=== PATIENT | female | born 1950 | race Caucasian/White ===

== ENCOUNTER → 2017-05-10 | Outpatient (CLI) | payer BC ==
--- NOTE | 2017-05-11 11:10 | MM ---
Reason for exam: screening (asymptomatic). Last mammogram was performed 2 years and 1 month ago. History: Patient is postmenopausal. Took estrogen beginning at age 45. Physical Findings: A clinical breast exam by your physician is recommended on an annual basis and results should be correlated with mammographic findings. MG Screening Mammo w CAD Bilateral CC and MLO view(s) were taken. Prior study comparison: April 08, 2015, bilateral MG screening mammo w CAD. August 16, 2011, bilateral digital screening mammo w/CAD. There are scattered fibroglandular densities. There is chronic nodularity in the left breast. No significant changes when compared with prior studies. ASSESSMENT: Benign, BI-RAD 2 RECOMMENDATION: Routine screening mammogram of both breasts in 1 year.
== END | disposition home or self-care (01) ==
LOC: RADMAMWWP 15:17
PROVIDERS: ATTEND Family Medicine
DX: Z12.31 Encounter for screening mammogram for malignant neoplasm of breast (principal)

== ENCOUNTER → 2018-01-03 | Outpatient (CLI) | payer MEDICARE ==
--- NOTE | 2018-01-04 12:38 | EST ---
EXERCISE STRESS AGE: 67 SEX: F HT: 5'5" WT: 195 PROTOCOL: Elver Stress Test STAGE: II DURATION OF EXERCISE: 4:51 HEART RATE REST: 73 BLOOD PRESSURE REST: 136/93 MAXIMUM HEART RATE ACHIEVED: 149 MAXIMUM BLOOD PRESSURE: 195/69 85% MPHR: 132 100% MPHR: 155 METS: 6.8 INDICATIONS: Chest pain. CLINICAL INFORMATION: Referred by Dr. Anson Byrnes for chest pain evaluation. Baseline heart rate 73 beats per minute. Baseline blood pressure 136/93 mmHg. Baseline 12-lead ECG shows normal sinus rhythm, normal cardiac intervals. Patient exercised on Elver protocol for 4 minutes 51 seconds achieving a peak heart rate of 149 beats per minute. Normal blood pressure in response to exercise. There was no ECG evidence for ischemia. No arrhythmias were noted. IMPRESSION: 1. Low-average exercise capacity. 2. No ECG evidence for ischemia at this low workload level. MMODL / IJN: [id number] /
== END | disposition home or self-care (01) ==
LOC: RADNMMAIN 11:08
PROVIDERS: ATTEND Family Medicine
DX: R68.89 Other general symptoms and signs (principal)
CPT/HCPCS: 93017

== ENCOUNTER → 2018-10-09 | Outpatient (CLI) | payer MEDICARE ==
--- NOTE | 2018-10-11 12:50 | MM ---
Reason for exam: screening (asymptomatic). Last mammogram was performed 1 year and 5 months ago. History: Patient is postmenopausal. Took estrogen beginning at age 45. Physical Findings: A clinical breast exam by your physician is recommended on an annual basis and results should be correlated with mammographic findings. MG 3D Screening Mammo W/Cad Bilateral CC and MLO view(s) were taken. Prior study comparison: May 10, 2017, bilateral MG screening mammo w CAD. April 08, 2015, bilateral MG screening mammo w CAD. There are scattered fibroglandular densities. Finding: There is a typically benign equal density (isodense), obscured oval mass in the middle position of the right breast on CC view which may be associated with vessels, 3D ML view recommended. New finding since May 10, 2017 and April 08, 2015. ASSESSMENT: Incomplete: need additional imaging evaluation, BI-RAD 0 RECOMMENDATION: Special view mammogram of the right breast. If lesion persists on supplemental views, image directed ultrasound is recommended. [facility] will attempt to contact patient to return for supplemental views and ultrasound if indicated.
== END | disposition home or self-care (01) ==
LOC: RADMAMWWP 13:19
PROVIDERS: ATTEND Family Medicine
DX: Z12.31 Encounter for screening mammogram for malignant neoplasm of breast (principal)
CPT/HCPCS: 77063; 77067

== ENCOUNTER → 2018-10-17 | Outpatient (CLI) | payer MEDICARE ==
--- NOTE | 2018-10-17 15:00 | MM ---
Reason for exam: additional evaluation requested from abnormal screening. Last mammogram was performed less than 1 month ago. History: Patient is postmenopausal. Took estrogen beginning at age 45. Physical Findings: Nurse did not find any significant physical abnormalities on exam. MG 3D Work Up W/Cad RT CC and MLO view(s) were taken of the right breast. Prior study comparison: October 09, 2018, bilateral MG 3d screening mammo w/cad. May 10, 2017, bilateral MG screening mammo w CAD. There are scattered fibroglandular densities. There is no discrete abnormality. No significant new findings when compared with previous films. These results were verbally communicated with the patient and result sheet given to the patient on 10/17/18. ASSESSMENT: Negative, BI-RAD 1 RECOMMENDATION: Return to routine screening mammogram schedule for both breasts.
== END | disposition home or self-care (01) ==
LOC: RADMAMWWP 14:17
PROVIDERS: ATTEND Family Medicine
DX: R92.8 Other abnormal and inconclusive findings on diagnostic imaging of breast (principal)
CPT/HCPCS: 77065; G0279; 77061

== ENCOUNTER → 2018-10-31 | Outpatient (CLI) | payer MEDICARE ==
--- NOTE | 2018-10-31 15:12 | BD ---
EXAMINATION TYPE: Axial Bone Density DATE OF EXAM: 10/31/2018 COMPARISON: 11/01/2005 CLINICAL HISTORY: Height: 64 IN Weight: 196 LBS RISK FACTORS HISTORY OF: Active: YES Diet low in dairy products/other sources of calcium: YES Postmenopausal woman: AGE 50 Take estrogen and/or progesterone medications: NOT NOW How long: CONTROL FROM AGE 20-48 MEDICATIONS: Additional Medications: VIT D, MULTI VIT, GABAPENTIN, EXAM MEASUREMENTS: Bone mineral densitometry was performed using the LifeShield System. Bone mineral density as measured about the Lumbar spine is: ----- L1-L4(G/cm2): 1.128 T Score Values are as follows: ----- L2: -1.3 ----- L3: -1.0 ----- L4: 1.4 ----- L1-L4: 0.5 Bone mineral density has: Increased 17.7% since study of: 11/01/2005 Bone mineral density about the R hip (g/cm2): 0.784 Bone mineral density about the L hip (g/cm2): 0.717 T Score values are as follows: -----R Neck: -1.8 -----L Neck: -1.2 -----R Total: -1.6 -----L Total: -1.2 Bone mineral density has: Increased 1.3% since study of: 11/01/2005 IMPRESSION: Osteopenia (T Score between -2.5 and -1). There is slightly increased risk of fracture and the patient may be considered for treatment. Re-Screen 2-5 years. NOTE: T-SCORE=SD OF THE YOUNG ADULT MEAN.
== END | disposition home or self-care (01) ==
LOC: RADBDWWP 12:31
PROVIDERS: ATTEND Family Medicine
DX: M85.80 Other specified disorders of bone density and structure, unspecified site (principal)
CPT/HCPCS: 77080

== ENCOUNTER 2019-02-21 06:53 | Day surgery (SDC) | payer MEDICARE ==
[2019-02-16 12:36] VITALS: BMI 32.4
[~2019-02-21 06:53] MED LIST: LACTATED RINGERS 1,000 ML IV SCH; LIDOCAINE 1% 20 ML VIAL (10MG/ML) FOR IV START INTRADERMA PRN; MIDAZOLAM 2 MG/2 ML VIAL IV PRN
[2019-02-21] MEDS ORDERED: LACTATED RINGERS 1,000 ML IV ONE (07:05)
[2019-02-21 07:13] VITALS: TEMP 97.6
[2019-02-21] MEDS ORDERED: PROPOFOL 10 MG/ML 20 ML VIAL IV ONE (07:28)
--- NOTE | 2019-02-21 07:30 | P.GSHP ---
History of Present Illness H&P Date: 02/21/19 CHIEF COMPLAINT: Colon screen HISTORY OF PRESENT ILLNESS: The patient is a 68-year-old female who presents for colon screen. Lower endoscopy was offered for further evaluation and management. PAST MEDICAL HISTORY: Please see list. PAST SURGICAL HISTORY: Please see list. MEDICATIONS: Please see list. ALLERGIES: Please see list. SOCIAL HISTORY: No illicit drug use FAMILY HISTORY: No reports of Crohn disease or ulcerative colitis. REVIEW OF ORGAN SYSTEMS: CONSTITUTIONAL: No reports of fevers or chills. PHYSICAL EXAM: VITAL SIGNS: Stable GENERAL: Well-developed pleasant in no acute distress. HEENT: No scleral icterus. Extraocular movements grossly intact. Moist buccal mucosa. NECK: Supple without lymphadenopathy. CHEST: Unlabored respirations. Equal bilateral excursions. CARDIOVASCULAR: Regular rate and rhythm. Distal 2+ pulses. ABDOMEN: Soft, nontender, nondistended. MUSCULOSKELETAL: No clubbing, cyanosis, or edema. ASSESSMENT: 1. Colon screen. PLAN: 1. Recommend proceeding with a lower endoscopy Past Medical History Past Medical History: Eye Disorder, Fibromyalgia, Osteoarthritis (OA) Additional Past Medical History / Comment(s): HX OF COLON POLYP, MAGUI MAC DEGENERATION History of Any Multi-Drug Resistant Organisms: None Reported Past Surgical History: Orthopedic Surgery, Tubal Ligation Additional Past Surgical History / Comment(s): LEFT KNEE SCOPE, COLONOSCOPY Past Anesthesia/Blood Transfusion Reactions: Motion Sickness Smoking Status: Former smoker - Past Family History Mother Family Medical History: No Reported History Medications and Allergies Home Medications Medication Instructions Recorded Confirmed Type Melatonin 5 mg PO HS 04/22/15 02/21/19 History Multivitamins, Thera [Multivitamin] 1 tab PO DAILY 04/22/15 02/16/19 History Acetaminophen/Diphenhydramine 1 each PO HS 02/16/19 02/21/19 History [Tylenol PM Extra Strength] Aspirin [Adult Low Dose Aspirin EC] 81 mg PO DAILY 02/16/19 02/16/19 History Cranberry Fruit Extract [Cranberry] 500 mg PO DAILY 02/16/19 02/16/19 History Ibuprofen 200 mg PO Q6H PRN 02/16/19 02/16/19 History Magnesium 200 mg PO DAILY 02/16/19 02/16/19 History [place]-3 Fatty Acids/Fish Oil [Fish 1 each PO DAILY 02/16/19 02/16/19 History Oil 1,000 mg Softgel] Vit A/Vit C/Vit E/Zinc/Copper 1 cap PO DAILY 02/16/19 02/16/19 History [ICAPS SOFTGEL] Allergies Allergy/AdvReac Type Severity Reaction Status Date / Time nickel Allergy Rash/Hives Verified 02/21/19 07:14 Surgical - Exam Vital Signs Pulse Resp BP Pulse Ox 78 14 153/79 94 L 02/21/19 07:10 02/21/19 07:10 02/21/19 07:10 02/21/19 07:10
--- NOTE | 2019-02-21 08:04 | P.PCN ---
Date of Procedure: 02/21/19 Description of Procedure: PREOPERATIVE DIAGNOSIS: Colonoscopy screening Personal history of colon polyps Family history colon cancer POSTOPERATIVE DIAGNOSIS: Colonoscopy screening Personal history of colon polyps Family history colon cancer Multiple tubular adenomas throughout the colon. External hemorrhoids, grade 3. OPERATION: Colonoscopy to the ileocecal valve and appendiceal orifice. Colonoscopy with multiple cold forceps biopsies. SURGEON: Marcelina Rivera MD. ANESTHESIA: MAC. INDICATIONS: The patient is a 68-year-old female who presents for colonoscopy screening. Last colonoscopy 5 years ago. Benefits and risks were described and informed consent was obtained. DESCRIPTION OF PROCEDURE: The patient had undergone GoLytely prep. She had been brought into the operating room and laid in the left lateral decubitus position. After adequate intravenous sedation, the rectum was examined with 2% lidocaine jelly. External hemorrhoids were encountered. The rectal tone was within normal limits. No lesions were palpated in the rectal vault. An Olympus colonoscope was advanced until the ileocecal valve and appendiceal orifice were clearly viewed. The prep was fair with visualization of the mucosal folds. The scope was removed with visualization of each mucosal fold. No large scattered diverticulosis was encountered. Multiple colonic polyps were found and cold forcep biopsy. No evidence of focal colitis was found. Retroflexion of the scope demonstrated grade 2 internal hemorrhoids without active bleeding or inflammation. The colon was desufflated. The patient had tolerated the procedure well. Withdrawal time was over 6 minutes. FINDINGS: Aronchick preparation quality scale 2 (1-5) Internal hemorrhoids, grade 2 External hemorrhoids, grade 3 No arteriovenous malformations No large scattered diverticulosis Removal of 4 polyps: - Cold forceps biopsy 20 cm from the anal verge x 2, 4 and 5 mm tubulovillous adenoma polyp. - Cold forceps biopsy 18 cm from the anal verge, 5 mm flat villous adenoma polyp. - Cold forceps biopsy at hepatic flexure, 5 mm polyp. No focal colitis. RECOMMENDATIONS: Given severity of tubular adenomas, recommend repeat colonoscopy 3 years, 2021. Plan - Discharge Summary Discharge Rx Participant: No New Discharge Prescriptions: No Action Multivitamins, Thera [Multivitamin] 1 tab PO DAILY Melatonin 5 mg PO HS Vit A/Vit C/Vit E/Zinc/Copper [ICAPS SOFTGEL] 1 cap PO DAILY [place]-3 Fatty Acids/Fish Oil [Fish Oil 1,000 mg Softgel] 1 each PO DAILY Magnesium 200 mg PO DAILY Ibuprofen 200 mg PO Q6H PRN PRN Reason: Pain Cranberry Fruit Extract [Cranberry] 500 mg PO DAILY Aspirin [Adult Low Dose Aspirin EC] 81 mg PO DAILY Acetaminophen/Diphenhydramine [Tylenol PM Extra Strength] 1 each PO HS Discharge Medication List Melatonin 5 mg PO HS 04/22/15 [History] Multivitamins, Thera [Multivitamin] 1 tab PO DAILY 04/22/15 [History] Acetaminophen/Diphenhydramine [Tylenol PM Extra Strength] 1 each PO HS 02/16/19 [History] Aspirin [Adult Low Dose Aspirin EC] 81 mg PO DAILY 02/16/19 [History] Cranberry Fruit Extract [Cranberry] 500 mg PO DAILY 02/16/19 [History] Ibuprofen 200 mg PO Q6H PRN 02/16/19 [History] Magnesium 200 mg PO DAILY 02/16/19 [History] Edison-3 Fatty Acids/Fish Oil [Fish Oil 1,000 mg Softgel] 1 each PO DAILY 02/16/19 [History] Vit A/Vit C/Vit E/Zinc/Copper [ICAPS SOFTGEL] 1 cap PO DAILY 02/16/19 [History] Follow up Appointment(s)/Referral(s): Marcelina Rivera MD [STAFF PHYSICIAN] - As Needed Patient Instructions/Handouts: Colorectal Polyps (IP) Activity/Diet/Wound Care/Special Instructions: Follow-up in 3 years, 2021 Discharge Disposition: HOME SELF-CARE
[2019-02-21 08:15] VITALS: BP 121/82; PULSE 64; RESP 16
== END 2019-02-21 08:37 | disposition home or self-care (01) ==
LOC: ORWHC2ENDO 06:53
PROVIDERS: ATTEND Surgery Plastic and Reconstructive Surgery
DX: Z12.11 Encounter for screening for malignant neoplasm of colon (principal); D12.3 Benign neoplasm of transverse colon; K63.5 Polyp of colon; K64.4 Residual hemorrhoidal skin tags; M19.90 Unspecified osteoarthritis, unspecified site; M79.7 Fibromyalgia; Z79.82 Long term (current) use of aspirin; Z80.0 Family history of malignant neoplasm of digestive organs; Z86.010 Personal history of colon polyps; Z87.891 Personal history of nicotine dependence; Z98.51 Tubal ligation status; Z79.1 Long term (current) use of non-steroidal anti-inflammatories (NSAID); Z79.899 Other long term (current) drug therapy; Z91.048 Other nonmedicinal substance allergy status
CPT/HCPCS: 88305; 45380; J2704

== ENCOUNTER → 2021-05-19 | Outpatient (CLI) | payer MEDICARE ==
--- NOTE | 2021-05-25 12:13 | MM ---
Reason for exam: screening (asymptomatic). Last mammogram was performed 2 years and 7 months ago. History: Patient is postmenopausal. Took estrogen beginning at age 45. Physical Findings: A clinical breast exam by your physician is recommended on an annual basis and results should be correlated with mammographic findings. MG 3D Screening Mammo W/Cad Bilateral CC and MLO view(s) were taken. Prior study comparison: October 17, 2018, right breast MG 3d work up w/cad RT. October 09, 2018, bilateral MG 3d screening mammo w/cad. There are scattered fibroglandular densities. No significant changes when compared with prior studies. ASSESSMENT: Negative, BI-RAD 1 RECOMMENDATION: Routine screening mammogram of both breasts in 1 year.
== END | disposition home or self-care (01) ==
LOC: RADMAMWWP 13:04
PROVIDERS: ATTEND Family Medicine
DX: Z12.31 Encounter for screening mammogram for malignant neoplasm of breast (principal); Z78.0 Asymptomatic menopausal state
CPT/HCPCS: 77063; 77067